=== PATIENT | female | born 1980 | race Two or more races ===

== ENCOUNTER → 2024-12-16 | Outpatient (CLI) | payer MEDICAID, SELFPAY ==
--- NOTE | 2024-12-16 13:15 | XR_ITS ---
Examination: Screening digital mammography, bilateral Computer aided detection 3-D breast Tomosynthesis, bilateral Date and time of exam: December 16, 2024 1317 hours Indication: Screening Technique: Nonmagnified MLO, CC views of the breasts to been obtained, reconstructed from 3-D Tomosynthesis images. R2 computer aided detection program utilized for evaluation of suspicious masses and/or abnormal calcifications. 3-D Tomosynthesis images obtained. Findings: The breasts are heterogeneously dense, which may obscure small masses 14 mm focal asymmetry outer right breast CC view, 8.3 cm from the nipple, likely posterior depth on the MLO view 13 cm from the nipple Benign calcifications Impression: BI-RADS Category 0: Incomplete: Need additional imaging evaluation Recommend follow-up spot tomographic views upper outer quadrant right breast posterior depth to assess 14 mm focal asymmetry on the current mammogram as well as bilateral breast sonography to complete the workup
== END | disposition home or self-care (01) ==
PROVIDERS: PCP Nurse Practitioner Family; Referring Provider Nurse Practitioner Family; Visit Provider Nurse Practitioner Family
DX: Z12.31 Encounter for screening mammogram for malignant neoplasm of breast (principal); N64.89 Other specified disorders of breast
CPT/HCPCS: 77063; 77067

== ENCOUNTER → 2025-01-02 | Outpatient (CLI) | payer MEDICAID, SELFPAY ==
--- NOTE | 2025-01-02 10:58 | XR_ITS ---
Examination: Diagnostic digital mammography, unilateral, right Computer aided detection 3-D breast Tomosynthesis, unilateral Date and time of exam: January 02, 2025 1138 hours INDICATIONS: Mammogram December 16, 2024 14 T millimeter focal asymmetry outer right breast CC view Technique: Nonmagnified MLO, CC views of the right breast have been obtained, reconstructed from 3-D Tomosynthesis images. R2 computer aided detection program utilized for evaluation of suspicious masses and/or abnormal calcifications. 3-D Tomosynthesis images obtained. Findings: The breast is heterogeneously dense, which may obscure small masses Focal asymmetry remains in the upper outer right breast probably benign Impression: BI-RADS category 3: Probably benign findings One additional 6 month right mammogram follow-up is needed
--- NOTE | 2025-01-02 11:18 | XR_ITS ---
Examination: Breast ultrasound complete, bilateral Date and time of exam: January 02, 2025 1122 hours INDICATIONS: 14 mm focal asymmetry upper outer quadrant right breast on mammogram December 16, 2024 Technique: Real-time grayscale ultrasonographic imaging bilateral breasts, including all 4 quadrants as well as nipple retroareolar and axillary regions. Findings: Sonographic images right breast Benign cysts, the largest in the 7:00 position 5 x 5 mm No solid nodules Sonographic images left breast No cystic or solid mass IMPRESSION: BI-RADS Category 2: Benign findings
== END | disposition home or self-care (01) ==
PROVIDERS: PCP Nurse Practitioner Family; Referring Provider Nurse Practitioner Family; Visit Provider Nurse Practitioner Family
DX: R92.331 Mammographic heterogeneous density, right breast (principal); N64.89 Other specified disorders of breast
CPT/HCPCS: 76641; 77061; 77065; G0279

== ENCOUNTER 2025-02-18 14:46 | Outpatient (AMB) | payer MEDICAID, SELFPAY ==
[2025-02-18 15:03] VITALS: BP 123/77; PULSE 100; RESP 17; TEMP 37.1; O2SAT 97; BMI 39.6
--- NOTE | 2025-02-18 15:03 | GYNCLNT_ITS ---
Vital Signs 02/18/25 15:03 Height 1.52 m Height Method Measured Weight 92.136 kg Weight Measurement Method Standing Scale BMI 39.6 BP 123/77 Blood Pressure Source Automatic Cuff Blood Pressure Location Right Upper Arm Position Sitting Respiration 17 Pulse 100 Pulse Source Monitor Temp 98.7 F Temp Source Temporal Artery Scan Pulse Oximetry (%) 97 Oxygen Delivery Method Room Air Allergies/Home Meds Allergies & Medications Allergies No Known Allergies Allergy (Verified 02/18/25 15:04) Intake Visit Data Collection New Patient or Established: New Patient (never been to [facility]) Reason for Visit:: REF LEIOMYOMA Consent obtained for Telemed Visit: No Seen by Clinical Staff ONLY (RN/MA): No Space Studies Faculty Member Required: No Do You Feel Safe at Home: Yes Authorities Contacted: N/A PCP or OBGYN visit in last 3 months: No Hx Now: No Are you currently on any form of Control: No Last menstrual period: 02/12/25 Pain Present Currently: No Pain Scale Used: Rome-Eagle/Numerical Pain scale:: 0 Smoking Status Smoking Status: Never smoker 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 1. Little interest or pleasure in doing things: not at all 2. Feeling down, depressed, or hopeless: not at all Total score: 0 PHQ-9 3. Trouble falling or staying asleep, or sleeping too much: Not at all 4. Feeling tired or having little energy: Not at all 5. Poor appetite or overeating: Not at all 6. Feeling bad about yourself - or that you are a failure or have let yourself or your family down: Not at all 7. Trouble concentrating on things, such as reading the newspaper or watching television: Not at all 8. Moving or speaking so slowly that other people could have noticed? - Or the opposite - being so fidgety or restless that you have been moving around a lot more than usual: not at all 9. Thoughts that you would be better off or of hurting yourself in some way: Not at all Total score: 0 If you checked off any problems, how difficult have these problems made it for you to do your work, take care of things at home, or get along with other people?: not difficult at all Source: Developed by Drs. Jett Tai, Mame Dee, Ganga Espinosa and colleagues, with an educational david from [employer]. Social History Living Situation History Marital Status: Lives With: Spouse Housing: House Tobacco History Smoking Status: Never smoker Alcohol History Alcohol Intake: Never Domestic Abuse History Do You Feel Safe at Home: Yes History of Present Illness HPI Narrative Elayne Patel is a 45-year-old female presenting for consultation regarding uterine fibroids. Her chief complaint is heavy menstrual bleeding, which has significantly worsened over the past 3 months. She describes the bleeding as really bad this last month. Due to the excessive blood loss, she has developed anemia and is currently taking iron supplements. The patient does not report any pain associated with her condition. Ms. Patel has not been on any specific treatment for her fibroids other than the iron supplementation for anemia. She is also taking vitamin D and an u nspecified treatment for a fungal infection, which is unrelated to her current gynecological issues. The patient's medical history is significant for two previous C-sections and having had her tubes tied for contraception. The heavy bleeding has impacted Ms. 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 She expresses interest in resolving the bleeding issue promptly, inquiring about how soon a potential surgery could be performed. Obstetric History: - GPAL: A0 L2 - Two previous pregnancies, both resulting in deliveries Medical History: - Anemia - Bilateral heterogeneous dense breasts Surgical History: - Two sections Medications and Supplements: - Iron (for anemia) - Vitamin D - Antifungal medication (for fungal infection) ROS: Genitourinary: Positive for heavy menstrual bleeding. Otherwise negative except as stated above. Diagnostic Test Results and Labs: Ultrasound (12/07/2024): - Uterus: Enlarged, measuring 17.5 cm x 9.5 cm x 13.8 cm - Leiomyomas: 3 identified - Anterior: 4.2 cm - Posterior: 5 cm - Fundal: 4.3 cm - Endocervical strip: 1.3 cm dilated - Endometrial stripe: 2 mm - Ovaries: - Right: 3.3 cm x 2.5 cm x 3 cm - Left: 2.5 cm x 2.5 cm x 2.5 cm - No other adnexal lesions Pap smear ([id number]): - Result: Negative - High-risk HPV screening: Negative Mammogram: - Result: Bilateral heterogeneously dense breasts Exam General General Appearance: alert, in no apparent distress and healthy appearing Head Head exam: atraumatic Neck Neck exam: Present normal inspection and trachea midline Chest Chest inspection: Present normal inspection and symmetric chest wall rise External exam: Present normal external exam; Absent tenderness Neuro Neurological exam: Present oriented X3 Psych Psychiatric exam: Present normal affect and normal mood Office Procedures OB Clinic LOC & Office Proc's Nursing/Assessment Patient Status: Initial/New Patient OB Clinic Nursing Assessment: Medication Reconciliation, Update PMH in EMR and Vital Signs OB Clinic Coordination of Care: Complex Care and Chronic Disease 1-5, Consent,records obtained, informed consent, 4+ Authorizations needed, Lab and Imaging orders and Results/Orders obtained New Patient Charge New Patient Point Assignment: 1104 New Patient 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 Enlarged uterus measuring 17.5 x 9.5 x 13.8 cm ? Three leiomyomas: anterior (4.2 cm), posterior (5 cm), and fundal (4.3 cm) ? Endometrial stripe measures 2 mm - Heavy bleeding, particularly severe in last month - Anemia requiring iron supplementation - Medical management unlikely to be effective due to fibroid size and symptom severity - At counseling, the patient was informed of the risks of surgery, and all alternatives were discussed Plan: - Recommend total hysterectomy with bilateral salpingectomy - Ovarian preservation planned - Anticipate using previous section incision for approach - Schedule surgery within approximately one month, pending insurance approval - Pre-operative evaluation: ? Complete blood count (to assess anemia) ? Basic metabolic panel ? EKG ? Anesthesia consultation one day prior to surgery - Discuss post-operative expectations: ? 1-2 night hospital stay ? 5-7 days of bed rest followed by gradual increase in activity ? Full activity clearance at 1 month post-op ? Potential for up to 3 months of disability - Schedule follow-up appointment prior to surgery for further questions and informed consent - Provide disability paperwork for up to 3 months once surgery date is confirmed
== END 2025-02-18 15:21 | disposition home or self-care (01) ==
LOC: HODSOBC 14:46
PROVIDERS: PCP Nurse Practitioner Family; Referring Provider Nurse Practitioner Family; Supervising Provider Obstetrics & Gynecology; Visit Provider Obstetrics & Gynecology
DX: D25.1 Intramural leiomyoma of uterus (principal); N92.0 Excessive and frequent menstruation with regular cycle; D64.9 Anemia, unspecified
CPT/HCPCS: 99203; G0463

== ENCOUNTER 2025-03-17 14:50 | Outpatient (AMB) | payer MEDICAID, SELFPAY ==
--- NOTE | 2025-03-17 15:12 | GYNCLNT_ITS ---
Vital Signs 03/17/25 15:13 Height 1.52 m Height Method Stated Weight 92.646 kg Weight Measurement Method Standing Scale BMI 40.1 BP 140/82 H Blood Pressure Source Automatic Cuff Blood Pressure Location Left Upper Arm Position Sitting Respiration 16 Pulse 70 Pulse Source Monitor Temp 98.4 F Temp Source Oral Pulse Oximetry (%) 98 Oxygen Delivery Method Room Air Allergies/Home Meds Allergies & Medications Allergies No Known Allergies Allergy (Verified 04/08/25 11:39) Intake Visit Data Collection New Patient or Established: Established Patient (seen at [facility] within 3 years) Reason for Visit:: PRE OP Seen by Clinical Staff ONLY (RN/MA): No Solderer Assembly Repair Required: No Do You Feel Safe at Home: Yes Authorities Contacted: N/A PCP or OBGYN visit in last 3 months: Yes Hx Now: No Are you currently on any form of Control: No Pain Present Currently: No Pain Scale Used: Rome-Eagle/Numerical Pain scale:: 0 Smoking Status Smoking Status: Never smoker Solutions Specialist history Solutions Specialist History Menstrual regularity: irregular Flow: heavy Monthly: Yes How many days does period last: 8 Age at menarche: 12 Currently sexually active: Yes 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 1. Little interest or pleasure in doing things: not at all 2. Feeling down, depressed, or hopeless: not at all Total score: 0 PHQ-9 3. Trouble falling or staying asleep, or sleeping too much: Not at all 4. Feeling tired or having little energy: Not at all 5. Poor appetite or overeating: Not at all 6. Feeling bad about yourself - or that you are a failure or have let yourself or your family down: Not at all 7. Trouble concentrating on things, such as reading the newspaper or watching television: Not at all 8. Moving or speaking so slowly that other people could have noticed? - Or the opposite - being so fidgety or restless that you have been moving around a lot more than usual: not at all 9. Thoughts that you would be better off or of hurting yourself in some way: Not at all Total score: 0 Source: Developed by Drs. Jett Tai, Mame Dee, Ganga Espinosa and colleagues, with an educational dvaid from [employer]. Depression screen completed yes Social History Living Situation History Lives With: Spouse Housing: House Tobacco History Smoking Status: Never smoker Alcohol History Alcohol Intake: Never Domestic Abuse History Do You Feel Safe at Home: Yes History of Present Illness HPI Narrative Patient presents for pre-operative consultation regarding a scheduled hysterectomy on March 26. She expresses nervousness about the procedure. The surgery is expected to last approximately 45 minutes, with additional time for anesthesia induction and recovery. The surgical plan includes a smaller incision than her previous scars, with the intention to preserve the ovaries unless abnormalities are detected intraoperatively. Elayne has concerns about the recovery process and post-operative care. She inquires about the duration of her hospital stay, which is expected to be two nights, with the possibility of discharge after one night if her recovery progresses exceptionally well. The patient also asks about disability paperwork related to her upcoming surgery and recovery period. 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 Her obstetric history includes GTPAL: G2 T2 L2, with two previous deliveries. Her surgical history includes two sections, kidney donation to her brother, and ovarian surgery. Family history notable for brother who received kidney donation from patient. Social history indicates patient is employed, as disability forms are discussed, and has children, as scars are mentioned. Exam General General Appearance: alert, in no apparent distress and healthy appearing Head Head exam: atraumatic Neck Neck exam: Present normal inspection and trachea midline Chest Chest inspection: Present normal inspection and symmetric chest wall rise External exam: Present normal external exam; Absent tenderness Neuro Neurological exam: Present oriented X3 Psych Psychiatric exam: Present normal affect and normal mood Office Procedures OB Clinic LOC & Office Proc's Nursing/Assessment Patient Status: Established Patient OB Clinic Nursing Assessment: Medication Reconciliation, Update PMH in EMR and Vital Signs OB Clinic Coordination of Care: Complex Care and Chronic Disease 1-5, Consent,records obtained, informed consent, Education Simp Pt/Fam, Lab and Imaging orders, Results/Orders obtained and Staff clarify orders Established Patient Charge Established Patient Point Assignment: 105 Established Patient Point Charge: EP Level 3 (80-115) Assessment & Plan Diagnosis / Problem List (1) Encounter for surgical aftercare following surgery on the genitourinary system: Status: Acute (2) Other acute postprocedural pain: Status: Acute Plan Scheduled Hysterectomy: - Perform hysterectomy on March 26 ? General anesthesia ? Estimated procedure time: 45 minutes ? Planned incision: smaller than scar ? Intent to preserve ovaries, remove if abnormalities noted intraoperatively - Anticipated hospital stay: 2 nights (possibly 1 if recovery exceeds expectations) - Remove urinary catheter after first night - Patient education provided: ? Postoperative expectations (eating, walking, showering permitted) ? Two Dot dressings to be removed at 2-week follow-up appointment - Follow-up appointment scheduled in 2 weeks: ? Remove dressings ? Assess recovery ? Provide clearance for driving and light work - Full activity clearance planned for 1 month post-surgery - Preoperative instructions: ? Await call from hospital for registration ? Complete preoperative testing 1-2 days before surgery (blood work, EKG, anesthesia consultation) ? Use provided antiseptic scrub on morning of surgery - Day of surgery: ? Check-in time: 6:00 AM ? Estimated surgery start time: 7:30 AM - Disability paperwork: ? Patient to submit online application and provide confirmation number ? Alternative: Patient may drop off paper forms at office for completion Surgical Counseling Benefits of Hysterectomy: Effective treatment for unspecified condition requiring removal of the uterus. Risks of Hysterectomy: General risks associated with anesthesia. Surgical risks including potential complications. Alternatives to Hysterectomy: Not specified in the given text.
[2025-03-17 15:13] VITALS: BP 140/82; PULSE 70; RESP 16; TEMP 36.9; O2SAT 98; BMI 40.1
== END 2025-03-17 15:27 | disposition home or self-care (01) ==
LOC: HODSOBC 14:50
PROVIDERS: Supervising Provider Obstetrics & Gynecology; Visit Provider Obstetrics & Gynecology
DX: G89.18 Other acute postprocedural pain (principal); Z90.710 Acquired absence of both cervix and uterus
CPT/HCPCS: 99213; G0463

== ENCOUNTER 2025-03-26 05:49 | Inpatient (IN) | payer MEDICAID, SELFPAY ==
[2025-03-24 09:41] VITALS: BMI 39.2
[2025-03-24 10:21] LABS: Basophils # (Auto) 0.0 Thou/mm3 (0.0-0.2); Basophils % (Auto) 1 % (0-2.5); Eosinophils # (Auto) 0.3 Thou/mm3 (0.0-0.5); Eosinophils % (Auto) 4 % (0-10); Hematocrit 37.0 % (36.0-46.0); Hemoglobin 11.5 g/dL (12.0-16.0); Immature Granulocytes Auto 0.03 Thou/mm3 (0.00-0.00); Lymphocytes # (Auto) 1.3 Thou/mm3 (1.0-4.8); Lymphocytes % (Auto) 19 % (10-50); Mean Corpuscular HGB Conc 31.1 g/dl (31.0-37.0); Mean Corpuscular Hemoglobin 25.5 pg (25.0-35.0); Mean Corpuscular Volume 82 fL (80-100); Monocytes # (Auto) 0.6 Thou/mm3 (0.0-0.8); Monocytes % (Auto) 9 % (0-12); Neutrophils # (Auto) 4.6 Thou/mm3 (1.8-7.7); Neutrophils % (Auto) 67 % (37-80); Nucleated Red Blood Cell # 0.00 Thou/mm3 (0.00-0.00); Nucleated Red Blood Cell % 0 /100 WBC (0); Platelet Count 369 Thou/mm3 (140-440); RDW Standard Deviation 54.2 fL (36.4-46.3); Red Blood Count 4.51 Miln/mm3 (4.00-5.20); White Blood Count 6.9 Thou/mm3 (3.6-11.0)
[2025-03-24 10:32] LABS: HCG,Qualitative Serum Negative
[2025-03-24 10:36] LABS: Alanine Aminotransferase 12 U/L (10-49); Albumin, Serum 4.8 gm/dL (3.5-5.0); Albumin/Globulin Ratio 1.6 (1.2-2.2); Alkaline Phosphatase 57 U/L (46-116); Anion Gap 8 (7-16); Aspartate Amino Transferase 13 U/L (0-34); BUN/Creatinine Ratio 15 Ratio (12-20); Bilirubin,Total 0.3 mg/dL (0.3-1.2); Blood Urea Nitrogen 12 mg/dL (9-23); Calcium 10.2 mg/dL (8.3-10.6); Calcium (Corrected) 10.2 mg/dL (8.5-10.1); Carbon Dioxide 23.8 mMol/L (20.0-31.0); Chloride 108 mMol/L (98-107); Creatinine (Component) 0.8 mg/dL (0.6-1.3); Estimated Creatinine Clearance 88.5 mL/min (>60); Globulin 3.0 gm/dL (2.3-3.5); Glucose 105 mg/dL (74-106); Osmolality,Calculated 279 (275-295); Potassium 4.0 mMol/L (3.4-5.1); Sodium 140 mMol/L (136-145); Total Protein 7.8 gm/dL (5.7-8.2); eGFR > 60 See Note
[2025-03-26] VITALS (13 sets, daily range): BP systolic 103–149; BP diastolic 59–89; PULSE 64–74; RESP 14–20; TEMP 36.2–37.1; O2SAT 94–100; BMI 39.2; BMI 39.0
--- NOTE | 2025-03-26 09:09 | ESOP_ITS ---
Operative Note - [employer] Procedure Date of procedure: 03/26/25 Procedure Performed: Supracervical abdominal hysterectomy Lysis of extensive scar tissue Indication: 45-year-old with 17 cm uterus, abnormal uterine bleeding Multiple leiomyomas measuring over 5 cm each Symptomatic anemia requiring blood transfusion History of section x 2 Post-Op diagnosis: Same as preop with significant scar tissue Anesthesia type: General Procedure description: Informed consent was obtained and the patient was taken to the operating room. Identity was confirmed by double identifiers and she was placed on the operating table. General anesthesia was administered and the patient was secured in the supine position. The abdomen and perineum were prepped in the usual sterile fashion, a Millan catheter was inserted for continuous drainage, and sterile drapes were applied. A surgical timeout was completed. A Pfannenstiel skin incision was made with a scalpel and carried down through the subcutaneous tissue. Significant scar tissue was encountered in the subcutaneous and fascial layers, making the fascia difficult to identify. Dissection was performed cautiously using a combination of sharp dissection and electrocautery to avoid injury to underlying structures. Upon reaching the fascia, it was incised on either side of the midline and extended bilaterally using Cobb scissors. The rectus fascia was grasped with Rona's clamps and dissected off the anterior surface of the rectus muscles both superiorly and inferiorly. The omentum was found adherent to the anterior abdominal wall, limiting access to the uterus. A Maillard incision was made in the left rectus muscle to facilitate safe peritoneal entry from behind. The peritoneal cavity was then entered and adhesions were addressed. Due to the enlarged size of the uterus, the Darion retractor could not be used. The bowel was packed out of the field as best as possible. Dense scar bands were present behind the uterus, over the uterine fundus, and anteriorly in the lower uterine segment tethering the bladder to the anterior uterus. These were carefully lysed using electrocautery and sharp dissection, taking great care to protect the surrounding structures. Once adequate visualization was achieved, the uterus was grasped with a double- tooth tenaculum and placed under traction. Dissection began at the right round ligament, which was divided. The anterior and posterior leaves of the right broad ligament were opened. Dissection continued across the anterior bladder reflection, and the left broad ligament was identified and divided. The utero- ovarian ligaments were then divided bilaterally. Dissection was carried down the sides of the uterus to the level of the endocervix. The uterus was amputated at this level, completing a supracervical hysterectomy. Hemostasis was confirmed at all dissection and adhesion takedown sites. Closure was performed en cheikh: The peritoneum, rectus muscles, and fascia were reapproximated using one-loop 0 PDS suture. The subcutaneous tissue was irrigated and closed using 0 Vicryl sutures. The skin was closed using jacki. A sterile pressure dressing was applied. The patient was undraped, general anesthesia was reversed, and she was transferred to the recovery room in stable and awake condition. The patient tolerated the procedure well. No acute complications were encountered. All instrument, sponge, and lap counts were correct ?2. Estimated blood loss (ml): 150 Findings: Extensive scar tissue in the subcutaneous and fascial layers Omentum adherent to anterior abdominal wall Dense pelvic adhesions including anterior lower uterine segment and posterior uterine fundus Significantly enlarged uterus Challenging exposure due to adhesions and body habitus Procedure duration prolonged by ~45 minutes due to adhesiolysis Surgical staff Operation Date: 03/26/25 07:30 Case Staff Anesthesiologist: Manuelito Youssef RN First Assistant: Isaura Elizabeth Diagnosis Discharge Diagnosis (1) Symptomatic anemia: Status: Acute (2) Abnormal uterine and vaginal bleeding, unspecified: Status: Acute (3) Intramural leiomyoma of uterus: Status: Acute Problem List Completed Was Problem List Reviewed/Reconciled?: Yes
--- NOTE | 2025-03-26 09:12 | SUR.PHASEI ---
0912 Patient arrived to recovery resting comfortably in bed, on oxygen 8L via oxy mask with an oral airway in place, breathing unlabored, vital signs stable, dressing intact to abdomen; jacki, telfa, gauze, medipore tape, no bleeding noted, to vaginal area; peripad, no bleeding noted, report received from Dr. Youssef and Cheko FOX
[2025-03-26] MEDS: SODIUM CHLORIDE 0.9% 1000 ML 1,000 ML 200 ML IV ×3 (09:31→20:00)
[2025-03-26] MEDS: HYDROmorphone 1 MG/ML PCA SYRINGE 30ML 30 MG IV (09:35)
--- NOTE | 2025-03-26 10:03 | SUR.PHASEI ---
0904 Report given to Conor RN, patient meets discharge criteria from recovery, resting comfortably in bed, on oxygen 2L via nasal cannula, breathing unlabored, vital signs stable, per patient her pain is tolerable, controlled with PRIMER INSPECTOR, dressing intact; no bleeding noted, urinary catheter in place with leg secure, eating ice chips; tolerating well, denies nausea 1003 Patient transported via bed to room to room 350 without incident, patients accompanied, patient resting comfortably with call light in reach when this director underwriter sales left patient room
[2025-03-26] MEDS: ONDANSETRON INJ 2 MG/ML INJ 2 ML 4 MG IVP (10:45)
[2025-03-26] MEDS: Milk Of Magnesia Susp 30 ML UDC PO (10:45)
[2025-03-26] MEDS: ACETAMINOPHEN IVPB 1,000 MG/100 ML VIAL 250 MG IV ×2 (14:08→20:54)
[2025-03-26] MEDS: PROMETHAZINE INJ 25 MG in SODIUM CHLORIDE 0.9% 50 ML IV (16:04)
[2025-03-27] VITALS (8 sets, daily range): BP systolic 93–127; BP diastolic 53–84; PULSE 61–90; RESP 14–20; TEMP 36.3–37.3; O2SAT 96–99
[2025-03-27] MEDS: SODIUM CHLORIDE 0.9% 1000 ML 1,000 ML 200 ML IV ×5 (01:45→22:00)
[2025-03-27] MEDS: ACETAMINOPHEN IVPB 1,000 MG/100 ML VIAL 250 MG IV (03:44)
[2025-03-27 06:02] LABS: Basophils # (Auto) 0.0 Thou/mm3 (0.0-0.2); Basophils % (Auto) 0 % (0-2.5); Eosinophils # (Auto) 0.0 Thou/mm3 (0.0-0.5); Eosinophils % (Auto) 0 % (0-10); Hematocrit 26.9 % (36.0-46.0); Immature Granulocytes Auto 0.04 Thou/mm3 (0.00-0.00); Lymphocytes # (Auto) 1.3 Thou/mm3 (1.0-4.8); Lymphocytes % (Auto) 10 % (10-50); Mean Corpuscular HGB Conc 30.1 g/dl (31.0-37.0); Mean Corpuscular Hemoglobin 25.2 pg (25.0-35.0); Mean Corpuscular Volume 84 fL (80-100); Monocytes # (Auto) 1.5 Thou/mm3 (0.0-0.8); Monocytes % (Auto) 11 % (0-12); Neutrophils # (Auto) 10.5 Thou/mm3 (1.8-7.7); Neutrophils % (Auto) 79 % (37-80); Nucleated Red Blood Cell # 0.00 Thou/mm3 (0.00-0.00); Nucleated Red Blood Cell % 0 /100 WBC (0); Platelet Count 252 Thou/mm3 (140-440); RDW Standard Deviation 54.6 fL (36.4-46.3); Red Blood Count 3.21 Miln/mm3 (4.00-5.20); White Blood Count 13.4 Thou/mm3 (3.6-11.0)
[2025-03-27 06:06] LABS: Hemoglobin 8.1 g/dL (12.0-16.0)
[2025-03-27 06:31] LABS: Anion Gap 9 (7-16); BUN/Creatinine Ratio 13 Ratio (12-20); Blood Urea Nitrogen 9 mg/dL (9-23); Calcium 8.0 mg/dL (8.3-10.6); Carbon Dioxide 24.0 mMol/L (20.0-31.0); Chloride 107 mMol/L (98-107); Creatinine (Component) 0.7 mg/dL (0.6-1.3); Estimated Creatinine Clearance 100.8 mL/min (>60); Glucose 127 mg/dL (74-106); Osmolality,Calculated 280 (275-295); Potassium 3.8 mMol/L (3.4-5.1); Sodium 140 mMol/L (136-145); eGFR > 60 See Note
[2025-03-27] MEDS: DOCUSATE SOD 100 MG CAPSULE PO (09:29)
--- NOTE | 2025-03-27 09:33 | PC.SS ---
Patient admitted for hysterectomy surgery. Surgery was completed yesterday with Dr. James. Patient is independent with ADL's. Patient is employed. No DME. PCP: Jessie Street NP. D/c plan is to return home. Alt medical decision maker: Spouse, Yanet Jeffers,
--- NOTE | 2025-03-27 10:30 | CHAP ---
Visit was made by the Spiritual Care Volunteer who prayed with them. Volunteer was in the hospital from 09:15-10:30.
--- NOTE | 2025-03-27 12:43 | ESPR_ITS ---
Documentation for date of: 03/27/25 POST ACUTE CARE NURSE Subjective Subjective Interval history: patient doing well this morning. Pain is adequately controlled on the current regimen. No incisional complaints, no chest pain, shortness of breath, breathing difficulties. Ambulating, tolerating p.o., Adequate UOP Exam Vital Signs Temp Pulse Resp BP Pulse Ox O2 Del Method O2 Flow Rate 97.8 F 79 17 93/58 L 98 Nasal Cannula 2 03/27/25 08:00 03/27/25 08:00 03/27/25 08:00 03/27/25 08:00 03/27/25 08:00 03/27/25 08:00 03/27/25 08:00 Constitutional Constitutional: no acute distress Routine HEENT Exam Head: Present normocephalic and atraumatic Eye: Present EOMI and PERRL ENT: Present mucous membranes moist Routine Neck Exam Neck: Present supple and trachea midline Routine Respiratory Exam Respiratory: Present chest non-tender, lungs clear, normal breath sounds and no resp distress Routine Cardiovascular Exam Cardiovascular: Present RRR Routine Abdominal Exam Abdominal: Present soft and normoactive bowel sounds Routine Extremities Exam Extremities: Present full ROM Routine Skin Exam Skin: Present intact and dry Routine Neurological Exam Neurological: Present alert, oriented X3 and CN II-XII intact Routine Psychiatric Exam Psychiatric: Present normal affect and normal thought process Urinary Catheter Management Cath placed during this visit: no POST ACUTE CARE NURSE - PN: Obj Data Labs 03/27/25 04:55 03/27/25 04:55 Labs: Laboratory Results - last 24 hr 03/27/25 04:55 WBC 13.4 H RBC 3.21 L Hgb 8.1 L D Hct 26.9 L D MCV 84 MCH 25.2 MCHC 30.1 L RDW Std Deviation 54.6 H Plt Count 252 D Neut % (Auto) 79 Lymph % (Auto) 10 [place] % (Auto) 11 Eos % (Auto) 0 Baso % (Auto) 0 Neut # (Auto) 10.5 H Lymph # (Auto) 1.3 [place] # (Auto) 1.5 H Eos # (Auto) 0.0 Baso # (Auto) 0.0 Immature Gran # (Auto) 0.04 H Absolute Nucleated RBC 0.00 Immature Gran % 0 Nucleated RBC % 0 Sodium 140 Potassium 3.8 Chloride 107 Carbon Dioxide 24.0 Anion Gap 9 BUN 9 Creatinine 0.7 Estim Creat Clear Calc 100.8 eGFR > 60 BUN/Creatinine Ratio 13 Glucose 127 H Calculated Osmolality 280 Calcium 8.0 L D POST ACUTE CARE NURSE - A/P Assessment and plan (1) Symptomatic anemia: Status: Acute (2) Abnormal uterine and vaginal bleeding, unspecified: Status: Acute (3) Intramural leiomyoma of uterus: Status: Acute Assessment and plan: 1. Continue routine /post-op care 2. Labs reviewed, cbc appropriate 3. Remove dressing/[place] 4. Encourage to ambulate, shower 5. Encourage PO intake, breast feeding Postoperative Procedures: Procedures Operation Date: 03/26/25 07:30 Actual Procedure Side Surgeon p Total Abdominal Hysterectomy Ramirez James MD Time Spent With Patient Time: Total time spent is greater than 50% in coordination of care (as documented) at patient's floor/unit and/or counseling patient: Time with patient: less than 15 minutes
[2025-03-27] MEDS: LACTULOSE SYRUP 20 GM/30 ML UDC 10 GM PO ×2 (13:25→21:38)
[2025-03-28] VITALS (7 sets, daily range): BP systolic 118–140; BP diastolic 64–85; PULSE 74–83; RESP 17–99; TEMP 36.4–37.2; O2SAT 93–99
[2025-03-28] MEDS: KETOROLAC INJ 30 MG/ML VIAL IVP ×2 (00:48→05:31)
[2025-03-28] MEDS: LACTULOSE SYRUP 20 GM/30 ML UDC 10 GM PO (05:31)
[2025-03-28] MEDS: SODIUM CHLORIDE 0.9% 1000 ML 1,000 ML 200 ML IV (05:49)
[2025-03-28] MEDS: DOCUSATE SOD 100 MG CAPSULE PO (08:41)
--- NOTE | 2025-03-28 08:54 | PD.GYNPROG ---
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 Pain is adequately controlled on the current regimen. No incisional complaints, no chest pain, shortness of breath, breathing difficulties. Ambulating, tolerating p.o., passing flatus and voiding without difficulty. Patient is in the hospital Exam Vital Signs Temp Pulse Resp BP Pulse Ox O2 Del Method O2 Flow Rate 97.5 F 74 17 123/75 97 Room Air 2 03/28/25 08:00 03/28/25 08:00 03/28/25 08:00 03/28/25 08:00 03/28/25 08:00 03/28/25 08:00 03/28/25 00:00 Constitutional Constitutional: no acute distress Routine HEENT Exam Head: Present normocephalic and atraumatic Eye: Present EOMI and PERRL ENT: Present mucous membranes moist Routine Neck Exam Neck: Present supple and trachea midline Routine Respiratory Exam Respiratory: Present chest non-tender, lungs clear, normal breath sounds and no resp distress Routine Cardiovascular Exam Cardiovascular: Present RRR Routine Abdominal Exam Abdominal: Present soft and normoactive bowel sounds Routine Extremities Exam Extremities: Present full ROM Routine Skin Exam Skin: Present intact and dry Routine Neurological Exam Neurological: Present alert, oriented X3 and CN II-XII intact Routine Psychiatric Exam Psychiatric: Present normal affect and normal thought process Urinary Catheter Management Cath placed during this visit: no 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 Continue routine post operative care 2. Transition to PO meds. 3. Encourage to ambulate 4. Anticipate discharge home today. 5. Home care instructions reviewed Postoperative Procedures: Procedures Operation Date: 03/26/25 07:30 Actual Procedure Side Surgeon p Total Abdominal Hysterectomy Ramirez James MD Time Spent With Patient Time: Total time spent is greater than 50% in coordination of care (as documented) at patient's floor/unit and/or counseling patient: Time with patient: less than 15 minutes
--- NOTE | 2025-03-28 09:55 | PC.SS ---
[id number] contacted the pts spouse Yanet Jeffers [phone] and he reported he will be picking up the pt when she is ready for d/c.
--- NOTE | 2025-03-28 11:03 | PC.NURSE ---
Spoke to dr James over the phone to clarify discharge per MD pt may discharge today and follow up with him.
--- NOTE | 2025-03-28 12:09 | PC.NURSE ---
Pt ready for dc. papers signed, iv out. 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
== END 2025-03-28 12:30 | disposition home or self-care (01) | DRG 519 ==
LOC: S2W1 07:09 → S3NX 10:11
PROVIDERS: Admitting Provider Obstetrics & Gynecology; PCP Nurse Practitioner Family; Visit Provider Obstetrics & Gynecology
PROC: 0UT90ZZ Resection of Uterus, Open Approach (ICD-10-PCS; principal; 2025-03-26 07:30)
DX: D25.1 Intramural leiomyoma of uterus (principal); D64.9 Anemia, unspecified; N73.6 Female pelvic peritoneal adhesions (postinfective); Z98.891 History of uterine scar from previous surgery
CPT/HCPCS: 36415; 80048; 80053; 84703; 85025; 86850; 86900; 86901; A4217; A4649; J0131; J0690; J1100; J1885; J2250; J2405; J2550; J2704; J3010; J3490; J7030; A9270

== ENCOUNTER 2025-04-08 11:26 | Outpatient (AMB) | payer MEDICAID, SELFPAY ==
[2025-04-08 11:38] VITALS: BP 113/80; PULSE 78; RESP 17; TEMP 36.5; O2SAT 98; BMI 38.7
--- NOTE | 2025-04-08 11:38 | AMB.GYNCLNOT ---
Vital Signs 04/08/25 11:38 Height 1.52 m Height Method Stated Weight 90.038 kg Weight Measurement Method Standing Scale BMI 38.7 BP 113/80 Blood Pressure Source Automatic Cuff Blood Pressure Location Right Upper Arm Position Sitting Respiration 17 Pulse 78 Pulse Source Monitor Temp 97.7 F Temp Source Temporal Artery Scan Pulse Oximetry (%) 98 Oxygen Delivery Method Room Air Allergies/Home Meds Allergies & Medications Allergies No Known Allergies Allergy (Verified 04/08/25 11:39) Medication Reconciliation clindamycin HCl 300 mg capsule 300 mg PO TID 7 days #21 caps 04/08/25 [Rx] clindamycin phosphate 1 % lotion 1 applic topical QDAY 7 days #60 mL 04/08/25 [Rx] Intake Visit Data Collection New Patient or Established: Established Patient (seen at 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 1. Little interest or pleasure in doing things: not at all 2. Feeling down, depressed, or hopeless: not at all Total score: 0 PHQ-9 3. Trouble falling or staying asleep, or sleeping too much: Not at all 4. Feeling tired or having little energy: Not at all 5. Poor appetite or overeating: Not at all 6. Feeling bad about yourself - or that you are a failure or have let yourself or your family down: Not at all 7. Trouble concentrating on things, such as reading the newspaper or watching television: Not at all 8. Moving or speaking so slowly that other people could have noticed? - Or the opposite - being so fidgety or restless that you have been moving around a lot more than usual: not at all 9. Thoughts that you would be better off or of hurting yourself in some way: Not at all Total score: 0 If you checked off any problems, how difficult have these problems made it for you to do your work, take care of things at home, or get along with other people?: not difficult at all Source: Developed by Drs. Jett Tai, Mame Dee, Ganga Espinosa and colleagues, with an educational david from [employer]. Depression screen completed yes Social History Living Situation History Marital Status: Lives With: Spouse Housing: House Tobacco History Smoking Status: Never smoker Second Hand Smoke Exposure: No Alcohol History Alcohol Intake: Never Domestic Abuse History Do You Feel Safe at Home: Yes History of Present Illness HPI Narrative Elayne Patel presents for a 10-day postoperative visit following a total abdominal hysterectomy performed on March 26, 2025. The patient reports that her pain is okay and has been improving daily since the surgery. She notes that the first three days post-surgery were particularly challenging, but her condition has been steadily improving since then. The patient denies any constipation or bladder problems. She has gradually increased her activity levels, including walking around and sitting for a couple of hours to watch TV. She reports no significant issues with her incision site, although there is a slight odor noted in the incision fold. The patient inquired about her disability forms, indicating she has been unable to work since the surgery and is seeking documentation for her leave. She also asked about the weight of her removed uterus, demonstrating interest in understanding the extent of her condition. The patient has been taking antibiotic tablets for 7 days and applying antibiotic cream once daily. She is currently on disability leave from work. ROS: Negative except as stated above, limited to BUNDLE WRAPPER and pertinent complaints. Exam Narrative Physical exam: - Abdominal: Incision site from total abdominal hysterectomy visualized. [place] present at incision site. Incision appears to be healing well. Slight odor noted in the incision fold. General General Appearance: alert, in no apparent distress and healthy appearing Head Head exam: atraumatic Neck Neck exam: Present normal inspection and trachea midline Chest Chest inspection: Present normal inspection and symmetric chest wall rise External exam: Present normal external exam; Absent tenderness Neuro Neurological exam: Present oriented X3 Psych Psychiatric exam: Present normal affect and normal mood Office Procedures OB Clinic LOC & Office Proc's Nursing/Assessment Patient Status: Established Patient OB Clinic Nursing Assessment: Medication Reconciliation, Update PMH in EMR and Vital Signs OB Clinic Coordination of Care: Complex Care and Chronic Disease 1-5, Consent,records obtained, informed consent, Education Simp Pt/Fam, Results/Orders obtained and Staff clarify orders Established Patient Charge Established Patient Point Assignment: 90 Established Patient Point Charge: EP Level 3 (80-115) Assessment & Plan Diagnosis / Problem List (1) Other acute postprocedural pain: Status: Acute (2) Encounter for surgical aftercare following surgery on the genitourinary system: Status: Acute Plan Status post total abdominal hysterectomy: - 10 days post-operative from total abdominal hysterectomy performed on 03/26/2025 for uterine fibroids. - Adequate pain control with no constipation or bladder problems. - Well-healing incision with jacki in place, slight odor noted in incisional fold. - Pathology confirms fibroids with no evidence of cancer or pre-cancerous lesions. - Removed uterus weighed 785 grams, approximately 4 times normal weight due to fibroid enlargement. Plan: - Remove jacki from abdominal incision. - Prescribe short course of oral antibiotics for 7 days. - Prescribe topical antibiotic cream to be applied once daily to incision site. - Instruct patient on gentle cleaning of incision site during showers. - Gradually increase activities with restrictions: ? No lifting more than 25 pounds ? No sexual intercourse ? No pelvic exercises - Cleared for walking, driving, and travel. - Complete disability paperwork as requested by patient. - Follow-up as needed.
== END 2025-04-08 11:52 | disposition home or self-care (01) ==
LOC: HODSOBC 11:26
PROVIDERS: Supervising Provider Obstetrics & Gynecology; Visit Provider Obstetrics & Gynecology
DX: N99.89 Other postprocedural complications and disorders of genitourinary system (principal); G89.18 Other acute postprocedural pain; Z90.710 Acquired absence of both cervix and uterus; Y83.6 Removal of other organ (partial) (total) as the cause of abnormal reaction of the patient, or of later complication, without mention of misadventure at the time of the procedure
CPT/HCPCS: 99213; G0463

== ENCOUNTER 2025-05-01 13:47 | Outpatient (AMB) | payer MEDICAID, SELFPAY ==
[2025-05-01 14:13] VITALS: BP 130/83; PULSE 83; RESP 16; TEMP 36.2; O2SAT 98; BMI 38.8
--- NOTE | 2025-05-01 14:13 | AMB.OBVISIT ---
Vital Signs 05/01/25 14:13 Height 1.52 m Height Method Stated Weight 89.811 kg Weight Measurement Method Standing Scale BMI 38.8 BP 130/83 Blood Pressure Source Automatic Cuff Blood Pressure Location Left Upper Arm Position Sitting Respiration 16 Pulse 83 Pulse Source Monitor Temp 97.2 F Temp Source Oral Pulse Oximetry (%) 98 Oxygen Delivery Method Room Air Allergies/Home Meds Allergies & Medications Allergies No Known Allergies Allergy (Verified 05/01/25 14:14) Medication Reconciliation No Known Home Medications 05/01/25 [History Confirmed 05/01/25] Intake Visit Data Collection New Patient or Established: Established Patient (seen at [facility] within 3 years) Reason for Visit:: OBC Seen by Clinical Staff ONLY (RN/MA): No 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 1. Little interest or pleasure in doing things: not at all 2. Feeling down, depressed, or hopeless: not at all Total score: 0 PHQ-9 3. Trouble falling or staying asleep, or sleeping too much: Not at all 4. Feeling tired or having little energy: Not at all 5. Poor appetite or overeating: Not at all 6. Feeling bad about yourself - or that you are a failure or have let yourself or your family down: Not at all 7. Trouble concentrating on things, such as reading the newspaper or watching television: Not at all 8. Moving or speaking so slowly that other people could have noticed? - Or the opposite - being so fidgety or restless that you have been moving around a lot more than usual: not at all 9. Thoughts that you would be better off or of hurting yourself in some way: Not at all Total score: 0 If you checked off any problems, how difficult have these problems made it for you to do your work, take care of things at home, or get along with other people?: not difficult at all Source: Developed by Drs. Jett Tai, Mame Dee, Ganga Espinosa and colleagues, with an educational david from [employer]. 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 She was previously seen for a complaint of slight odor from her incision and was prescribed antibiotics. The patient reports that her incision has healed well. She mentions experiencing a rash in the incision area, which she had checked by another doctor who attributed it to sweating and assured her it was fine. Elayne denies any current drainage or discharge from the incision site. She has completed the prescribed course of antibiotics for the previously reported odor. Elayne's overall health status appears to have improved since her last visit, with resolution of the incision-related concerns. She has not reported any new symptoms or complications related to her surgery. She is a 45-year-old female. The patient has been cleared to return to work, resume sexual intercourse, and resume exercise. ROS: Skin: Positive for resolved rash in incision area. Genitourinary: Negative for discharge from incision. Exam Narrative Physical exam: - Abdominal: Incision site is healed and dry. No discharge or odor noted Assessment & Plan Diagnosis / Problem List (1) Encounter for surgical aftercare following surgery on the genitourinary system: Status: Acute (2) Other acute postprocedural pain: Status: Acute Plan Status post total abdominal hysterectomy: - Patient is now more than one month post-operative from total abdominal hysterectomy performed on March 26, 2025. - Previous visit: reported slight odor from incision, treated with antibiotics. - Current status: incision healed well with no drainage or odor. - Experienced rash in incision area attributed to sweating. - Surgical site appears to have healed appropriately without complications. Plan: - Patient cleared for all activities without restrictions. - Advised to keep incision area dry after showering. - Recommended use of antiperspirant in incision area to reduce sweating. - Instructed to clean incision area daily with soap and water. - Cleared to resume sexual activity: ? Informed about possibility of minor stretching and spotting during first intercourse post-surgery - Cleared to resume exercise and return to work. - Follow up as needed.
== END 2025-05-01 14:20 | disposition home or self-care (01) ==
LOC: HODSOBC 13:47
PROVIDERS: Supervising Provider Obstetrics & Gynecology; Visit Provider Obstetrics & Gynecology
DX: Z48.816 Encounter for surgical aftercare following surgery on the genitourinary system (principal); G89.18 Other acute postprocedural pain; Z90.710 Acquired absence of both cervix and uterus
CPT/HCPCS: 99213; G0463

== ENCOUNTER → 2025-06-15 | Outpatient (CLI) | payer MEDICAID, SELFPAY ==
--- NOTE | 2025-06-15 11:30 | XR_ITS ---
Examination: Abdomen sonogram, complete Date and time of exam: June 15, 2025, 1052 hours INDICATIONS: Left epigastric pain months. Technique: Multiple real-time grayscale transabdominal sonographic images of the abdomen have been obtained. Findings: Normal gallbladder Common bile duct enlarged 7 mm although no definite stones Pancreatic head 1.8 cm Aorta not enlarged. Liver 16.5 cm fatty infiltration no focal liver lesions Normal hepatopetal portal venous flow Patent IVC Right kidney 14.1 cm renal cortex 1.7 cm Left kidney absent Spleen 10.3 cm IMPRESSION: Enlarged common bile duct, consider MRCP follow-up to exclude common bile duct stones and/or stricture
== END | disposition home or self-care (01) ==
PROVIDERS: PCP Nurse Practitioner Family; Referring Provider Nurse Practitioner Family; Visit Provider Nurse Practitioner Family
DX: K83.8 Other specified diseases of biliary tract (principal)
CPT/HCPCS: 76700

== ENCOUNTER 2025-06-21 01:36 | Emergency (ER) | payer MEDICAID, SELFPAY ==
[2025-06-21 01:37] VITALS: BMI 38.2
--- NOTE | 2025-06-21 01:50 | XR_ITS ---
Examination: Abdomen sonogram, Limited Date and time of exam: June 21, 2025, 0429 hours INDICATIONS: Abdominal pain C epigastric pain beginning several months ago Technique: Real-time sanders scale transabdominal sonographic images of the upper abdomen obtained. Findings: Normal gallbladder Common bile duct 0.7 cm no stones Pancreatic head 3.6 cm Liver 17.3 cm fatty infiltration Normal hepatopetal portal venous flow Patent IVC IMPRESSION: Normal gallbladder. Mildly enlarged common bile duct, clinical correlation advised, if biliary colic is a clinical consideration, suggest MRCP follow-up
[2025-06-21 01:51] LABS: Bacteria,Urine 1+; Bilirubin,Urine Negative (Negative); Blood,Urine Trace (Negative); Clarity,Urine Clear (Clear/Hazy); Collection Type, Urine Clean Catch; Color,Urine Lt-Yellow (Lt Yel-Yel); Glucose, Urine Negative (Negative); Ketones,Urine Negative (Negative); Leukocyte Esterase,Urine Positive (Negative); Nitrite,Urine Negative (Negative); PH,Urine 6.0 (5.0-7.0); Protein,Urine Negative (Neg - Trace); RBC,Urine 5 /hpf (0-3); Specific Gravity,Urine 1.023 (1.001-1.035); Squamous Epithelial Cell,Urine 6 /hpf (0-5); Urobilinogen,Urine Negative mg/dL (0.0-1.0); WBC,Urine 2 /hpf (0-5)
[2025-06-21 01:52] VITALS: BP 140/84; PULSE 67; RESP 18; TEMP 37; O2SAT 97
[2025-06-21 01:53] LABS: HCG Qualitative,Urine Negative
[2025-06-21 02:34] LABS: Basophils # (Auto) 0.0 Thou/mm3 (0.0-0.2); Basophils % (Auto) 0 % (0-2.5); Eosinophils # (Auto) 0.4 Thou/mm3 (0.0-0.5); Eosinophils % (Auto) 3 % (0-10); Hematocrit 35.3 % (36.0-46.0); Hemoglobin 11.2 g/dL (12.0-16.0); Immature Granulocytes Auto 0.05 Thou/mm3 (0.00-0.00); Lymphocytes # (Auto) 1.9 Thou/mm3 (1.0-4.8); Lymphocytes % (Auto) 15 % (10-50); Mean Corpuscular HGB Conc 31.7 g/dl (31.0-37.0); Mean Corpuscular Hemoglobin 24.5 pg (25.0-35.0); Mean Corpuscular Volume 77 fL (80-100); Monocytes # (Auto) 1.1 Thou/mm3 (0.0-0.8); Monocytes % (Auto) 9 % (0-12); Neutrophils # (Auto) 9.1 Thou/mm3 (1.8-7.7); Neutrophils % (Auto) 72 % (37-80); Nucleated Red Blood Cell # 0.00 Thou/mm3 (0.00-0.00); Nucleated Red Blood Cell % 0 /100 WBC (0); Platelet Count 381 Thou/mm3 (140-440); RDW Standard Deviation 45.3 fL (36.4-46.3); Red Blood Count 4.58 Miln/mm3 (4.00-5.20); White Blood Count 12.6 Thou/mm3 (3.6-11.0)
[2025-06-21 02:41] LABS: Alanine Aminotransferase 15 U/L (10-49); Albumin, Serum 4.4 gm/dL (3.5-5.0); Albumin/Globulin Ratio 1.7 (1.2-2.2); Alkaline Phosphatase 96 U/L (46-116); Anion Gap 8 (7-16); Aspartate Amino Transferase 19 U/L (0-34); BUN/Creatinine Ratio 18 Ratio (12-20); Bilirubin,Total 0.2 mg/dL (0.3-1.2); Blood Urea Nitrogen 16 mg/dL (9-23); Calcium 9.5 mg/dL (8.3-10.6); Calcium (Corrected) 9.5 mg/dL (8.5-10.1); Carbon Dioxide 27.4 mMol/L (20.0-31.0); Chloride 107 mMol/L (98-107); Creatinine (Component) 0.9 mg/dL (0.6-1.3); Estimated Creatinine Clearance 77.5 mL/min (>60); Globulin 2.6 gm/dL (2.3-3.5); Glucose 102 mg/dL (74-106); Lipase 36 U/L (12-53); Osmolality,Calculated 284 (275-295); Potassium 4.1 mMol/L (3.4-5.1); Sodium 142 mMol/L (136-145); Total Protein 7.0 gm/dL (5.7-8.2); eGFR > 60 See Note
[2025-06-21] MEDS: FAMOTIDINE 20 MG TABLET 40 MG PO (03:26)
[2025-06-21] MEDS: ONDANSETRON ODT 4 MG TABRAP PO (03:26)
[2025-06-21] MEDS: MG HYD/AL HYD/SIME (Maalox Reg) SUSP 30 ML UDC PO ×2 (03:27→07:37)
[2025-06-21] MEDS: LIDOCAINE VISCOUS 2% 15 ML UDC PO ×2 (03:27→07:37)
--- NOTE | 2025-06-21 03:58 | PD.EDRME ---
Rapid Medical Screening Exam RME Arrival date/time: 06/21/25 01:36 PDT This is a case of 45-year-old female who came in the emergency room due to bilateral upper abdominal pain for 2 days associated with nausea vomiting patient will have history of gastritis patient was here 06/15/2025 where ultrasound of the abdomen was performed and patient need MRCP worsening of the symptoms this patient decided to start consult here in the emergency room Chief Complaint: Abdominal Pain Time Seen by Provider: 06/21/25 01:49 PDT Vital signs: Vital Signs Temperature 98.6 F 06/21/25 01:52 PDT Pulse Rate 67 06/21/25 01:52 PDT Respiratory Rate 18 06/21/25 01:52 PDT Blood Pressure 140/84 H 06/21/25 01:52 PDT Pulse Oximetry (%) 97 06/21/25 01:52 PDT Oxygen Delivery Method Room Air 06/21/25 01:52 PDT Exam: Moderate tenderness bilateral upper abdomen no guarding no rebound no rigidity Clinical Impression: Abdominal pain
[2025-06-21 07:15] VITALS: BP 130/85; PULSE 69; RESP 19; TEMP 37.2; O2SAT 99
--- NOTE | 2025-06-21 07:22 | PD.EDABDPN ---
ED Abdominal Pain RME/HPI General Chief Complaint: Abdominal Pain Stated complaint: UPPER ABD PAIN AND NAUSEA Time seen by provider: 06/21/25 01:49 PDT Arrival date/time: 06/21/25 01:36 PDT RME / HPI RME / HPI narrative: 06/21/25 01:36 PDT This is a case of 45-year-old female who came in the emergency room due to bilateral upper abdominal pain for 2 days associated with nausea vomiting patient will have history of gastritis patient was here 06/15/2025 where ultrasound of the abdomen was performed and patient need MRCP worsening of the symptoms this patient decided to start consult here in the emergency room DR. GUEVARA MAIN ED EVALUATION: 45-year-old female with a history of gastritis presents to the Emergency Department accompanied by her for epigastric pain that radiated to her back and was described as severe earlier today. She reports associated nausea without vomiting and mild diarrhea. Denies black or bloody stools. She also notes mild dysuria. No vaginal discharge. Related Data Previous Rx's ?Medication ?Instructions ?Recorded sulfamethoxazole 800 1 tab PO BID #5 tabs 06/21/25 mg-trimethoprim 160 mg tablet (Bactrim DS) Allergies Allergy/AdvReac Type Severity Reaction Status Date / Time No Known Allergies Allergy Verified 06/21/25 01:40 PDT Review of Systems Review of Systems Systems Reviewed: All systems reviewed, normal except as documented Past Medical History Past Medical History GASTROINTESTINAL: Positive Gastrointestinal Disorders (gastritis) and Obesity REPRODUCTIVE: Positive Previous Pregnancies HEMATOLOGIC: Positive Blood Disorders and Anemia PSYCHO/SOCIAL: Positive Anxiety OTHER HISTORY: Positive Hospitalization Surgical History SURGICAL: Positive Nephrectomy (Donated left kidney), Tubal Ligation and Section (X2) Social History SMOKING STATUS: Never smoker SECOND HAND EXPOSURE: No ED Exam Narrative Physical exam: GENERAL APPEARANCE: alert and oriented x 4, well-developed, well-nourished, no acute distress VITALS: All vitals were reviewed and the pulse ox is 99% on room air, which is normal according to my interpretation. HEENT: Normocephalic, atraumatic; pupils equal, round, reactive to light; EOMI; mucous membranes pink, moist; oropharynx clear NECK: Supple LUNGS: CTABL; no wheezes, no rales, no rhonchi HEART: Regular rate, regular rhythm; normal S1, S2; no murmurs ABDOMEN: non distended; normal BS; soft, no tenderness, no guarding, no rebound; no masses, no organomegaly, no hernia BACK: no CVA tenderness EXTREMITIES: atraumatic; no edema NEUROLOGIC: awake; alert and oriented x4; cranial nerves II-XII grossly intact; no focal sensory or motor deficits PSYCHIATRIC: appropriate mood and affect SKIN: warm, dry, normal color; no rashes Course Quality Measures none Orders Category Date Time Status US gall bladder Stat Exams 06/21/25 01:50 Completed CBC Stat Lab 06/21/25 02:08 Completed Comprehensive Metabolic Panel Stat Lab 06/21/25 02:08 Completed HCG Qualitative,Urine Stat Lab 06/21/25 01:28 Completed Lipase Stat Lab 06/21/25 02:08 Completed Urinalysis Stat Lab 06/21/25 01:28 Completed Famotidine [Pepcid] Med 06/21/25 03:01 Discontinued 40 mg PO X1 ONE HYDROcodone*/APAP 5/325 [Mason 5/325] Med 06/21/25 03:01 Discontinued 1 tab PO X1 ONE Lidocaine 2% Viscous [Xylocaine 2% Viscous] Med 06/21/25 03:01 Discontinued 15 ml PO X1 ONE Lidocaine 2% Viscous [Xylocaine 2% Viscous] Med 06/21/25 07:23 Discontinued 15 ml PO X1 ONE Ondansetron Odt [Zofran Odt] Med 06/21/25 03:02 Discontinued 4 mg PO X1 ONE Trimethoprim/Sulfa 160/800 Ds [Bactrim Ds] Med 06/21/25 07:23 Discontinued 1 tab PO X1 ONE mg Hyd/Al Hyd/Donte Susp [Maalox Susp] Med 06/21/25 03:01 Discontinued 30 ml PO X1 ONE mg Hyd/Al Hyd/Donte Susp [Maalox Susp] Med 06/21/25 07:23 Discontinued 30 ml PO X1 ONE Vital Signs Vital signs: Vital Signs Temperature 98.6 F 06/21/25 01:52 PDT Pulse Rate 67 06/21/25 01:52 PDT Respiratory Rate 18 06/21/25 01:52 PDT Blood Pressure 140/84 H 06/21/25 01:52 PDT Pulse Oximetry (%) 97 06/21/25 01:52 PDT Oxygen Delivery Method Room Air 06/21/25 01:52 PDT Abdominal Pain MDM MDM Narrative MDM Narrative:: I, Yeimy Hernandez, am scribing for and in the presence of Dr. Geuvara. She states that the GI cocktail medication given in the ED has helped relieve the pain; she denied the Mason medication. Patient data External records reviewed:: [facility] previous records Clinical information provided by:: patient and spouse Social determinants that could affect healthcare access:: none Patient has the following chronic illnesses:: gastritis How is presenting disease/condition affected by chronic disease/condition?: caused by Evaluation data The following diagnostics were reviewed and interpreted by me:: lab results and radiology exam(s) Lab and/or radiology exams considered but not ordered:: none Interpretation Summary: -Ultrasound and lab work looks fine. -WBC little elevated Procedure(s): US gall bladder Accession Number(s): [id number] cc: Jessie Street-C; Spencer Basilio MD; Rosario Jimenez~ Examination: Abdomen sonogram, Limited Date and time of exam: June 21, 2025, 0429 hours INDICATIONS: Abdominal pain C epigastric pain beginning several months ago Technique: Real-time sanders scale transabdominal sonographic images of the upper abdomen obtained. Findings: Normal gallbladder Common bile duct 0.7 cm no stones Pancreatic head 3.6 cm Liver 17.3 cm fatty infiltration Normal hepatopetal portal venous flow Patent IVC IMPRESSION: Normal gallbladder. Mildly enlarged common bile duct, clinical correlation advised, if biliary colic is a clinical consideration, suggest MRCP follow-up Dictated By: Spencer Basilio MD Medications / Prescriptions Medications or Prescriptions considered but not ordered:: none Medication administrations:: Medication Administration History Discontinued Medications Hydrocodone Bitart/Acetaminophen (Hydrocodone/Apap 5/325 Tablet) 1 tab PO X1 ONE Stop: 06/21/25 03:02 Last Admin: 06/21/25 03:31 Dose: Not Given Documented By: MEERA Non-Admin Reason: Patient Refused Al Hydrox/Mg Hydrox/Simethicone (Mg Hyd/Al Hyd/Donte (Maalox Reg) Susp 30 Ml Udc) 30 ml PO X1 ONE Stop: 06/21/25 03:02 Last Admin: 06/21/25 03:27 Dose: 30 ml Documented By: MEERA Al Hydrox/Mg Hydrox/Simethicone (Mg Hyd/Al Hyd/Donte (Maalox Reg) Susp 30 Ml Udc) 30 ml PO X1 ONE Stop: 06/21/25 07:24 Last Admin: 06/21/25 07:37 Dose: 30 ml Documented By: LIDA Famotidine (Famotidine 20 Mg Tablet) 40 mg PO X1 ONE Stop: 06/21/25 03:02 Last Admin: 06/21/25 03:26 Dose: 40 mg Documented By: MEERA Lidocaine HCl (Lidocaine Viscous 2% 15 Ml Udc) 15 ml PO X1 ONE Stop: 06/21/25 03:02 Last Admin: 06/21/25 03:27 Dose: 15 ml Documented By: MEERA Lidocaine HCl (Lidocaine Viscous 2% 15 Ml Udc) 15 ml PO X1 ONE Stop: 06/21/25 07:24 Last Admin: 06/21/25 07:37 Dose: 15 ml Documented By: LIDA Ondansetron HCl (Ondansetron Odt 4 Mg Tabrap) 4 mg PO X1 ONE; Protocol Stop: 06/21/25 03:03 Last Admin: 06/21/25 03:26 Dose: 4 mg Documented By: MEERA Trimethoprim/Sulfamethoxazole (Trimethoprim/Sulfa 160/800 Ds Tablet) 1 tab PO X1 ONE Stop: 06/21/25 07:24 Last Admin: 06/21/25 07:37 Dose: 1 tab Documented By: LIDA see above Consultations Consultation(s) initiated? (list below): No Diagnosis Differential diagnosis abdominal pain: other (Gastritis, peptic ulcer disease, and pancreatitis.) Most likely diagnosis given after review of the tests above:: Gastritis UTI Admission Indicated Admission indicated?: not indicated Admission Request Was there a request for admission?: No Disposition Plan Disposition Plan: Discharge Discharge Attestation Discharge Attestation: The patient and all family members were given an opportunity to ask questions and understood the discharge instructions. Discharge instructions specifically effects, indications for sooner follow up or return to the emergency department, and the expected course of current diagnosis. Patient condition: Stable Discharge Plan Plan Patient Disposition: HOME (Self Care) Prescriptions/Referrals Prescriptions/Med Rec: New sulfamethoxazole-trimethoprim [Bactrim DS] 800-160 mg tablet 1 tab PO BID Qty: 5 0RF Referrals: Jessie Street FNP-C [Primary Care Provider] - In 1 week Problem List Clinical Impression: Gastritis, UTI (urinary tract infection) Patient/Caregiver Discharge Instructions Education Materials: ED Gastritis (Adult), ED CYSTITIS Female Adult Print Language: Colombian Stand Alone Forms: Francisca Award Info., Patient Portal Info Letter
[2025-06-21] MEDS: TRIMETHOPRIM/SULFA 160/800 DS TABLET 1 TAB PO (07:37)
== END 2025-06-21 07:53 | disposition home or self-care (01) ==
PROVIDERS: Nurse Practitioner Family; Emergency Provider Emergency Medicine; PCP Nurse Practitioner Family
DX: N30.90 Cystitis, unspecified without hematuria (principal); K29.70 Gastritis, unspecified, without bleeding
CPT/HCPCS: 36415; 76705; 80053; 81001; 81025; 83690; 85025; 87086; 99283; J3490; Q0162; A9270

== ENCOUNTER 2025-07-14 17:07 | Emergency (ER) | payer MEDICAID, SELFPAY ==
[2025-07-14 18:56] VITALS: BP 119/76; PULSE 73; RESP 18; TEMP 37.3; O2SAT 98; BMI 39.5
--- NOTE | 2025-07-14 19:34 | XR_ITS ---
Examination: Abdomen sonogram, Limited Date and time of exam: July 14, 2025, 1950 hours INDICATIONS: Right upper abdominal pain with nausea today. Technique: Real-time sanders scale transabdominal sonographic images of the upper abdomen obtained. Findings: Contracted gallbladder No gallstones Common bile duct 0.6 cm Pancreatic head 3.4 cm Liver 18.5 cm smooth contour fatty infiltration no focal liver lesions Normal hepatopetal portal venous flow Patent IVC IMPRESSION: Mildly enlarged common bile duct, clinical correlation advised If biliary colic is a clinical consideration consider MRCP follow-up Moderate hepatomegaly
--- NOTE | 2025-07-14 19:34 | PD.EDRME ---
Rapid Medical Screening Exam [facility] Arrival date/time: 07/14/25 17:07 45F with history of hysterectomy presents to ED with persistent epigastric pain that radiates to back since visit several weeks ago here. Patient CBD on US was mildly dilated. Patient also has some N/V. Chief Complaint: Abdominal Pain Vital signs: Vital Signs Temperature 99.1 F 07/14/25 18:56 Pulse Rate 73 07/14/25 18:56 Respiratory Rate 18 07/14/25 18:56 Blood Pressure 119/76 07/14/25 18:56 Pulse Oximetry (%) 98 07/14/25 18:56 Oxygen Delivery Method Room Air 07/14/25 18:56 Exam: Mild epigastric tenderness Clinical Impression: biliary disease vs pancreatitis vs gastritis vs ab pain
[2025-07-14 19:56] LABS: Basophils # (Auto) 0.1 Thou/mm3 (0.0-0.2); Basophils % (Auto) 1 % (0-2.5); Eosinophils # (Auto) 0.4 Thou/mm3 (0.0-0.5); Eosinophils % (Auto) 4 % (0-10); Hematocrit 36.6 % (36.0-46.0); Hemoglobin 11.8 g/dL (12.0-16.0); Immature Granulocytes Auto 0.06 Thou/mm3 (0.00-0.00); Lymphocytes # (Auto) 2.4 Thou/mm3 (1.0-4.8); Lymphocytes % (Auto) 23 % (10-50); Mean Corpuscular HGB Conc 32.2 g/dl (31.0-37.0); Mean Corpuscular Hemoglobin 25.1 pg (25.0-35.0); Mean Corpuscular Volume 78 fL (80-100); Monocytes # (Auto) 1.0 Thou/mm3 (0.0-0.8); Monocytes % (Auto) 10 % (0-12); Neutrophils # (Auto) 6.3 Thou/mm3 (1.8-7.7); Neutrophils % (Auto) 62 % (37-80); Nucleated Red Blood Cell # 0.00 Thou/mm3 (0.00-0.00); Nucleated Red Blood Cell % 0 /100 WBC (0); Platelet Count 389 Thou/mm3 (140-440); RDW Standard Deviation 49.6 fL (36.4-46.3); Red Blood Count 4.71 Miln/mm3 (4.00-5.20); White Blood Count 10.2 Thou/mm3 (3.6-11.0)
[2025-07-14 20:17] LABS: Alanine Aminotransferase 20 U/L (10-49); Albumin, Serum 4.6 gm/dL (3.5-5.0); Albumin/Globulin Ratio 1.5 (1.2-2.2); Alkaline Phosphatase 84 U/L (46-116); Anion Gap 11 (7-16); Aspartate Amino Transferase 21 U/L (0-34); BUN/Creatinine Ratio 15 Ratio (12-20); Bilirubin,Total 0.4 mg/dL (0.3-1.2); Blood Urea Nitrogen 16 mg/dL (9-23); Calcium 10.0 mg/dL (8.3-10.6); Calcium (Corrected) 10.0 mg/dL (8.5-10.1); Carbon Dioxide 26.5 mMol/L (20.0-31.0); Chloride 104 mMol/L (98-107); Creatinine (Component) 1.1 mg/dL (0.6-1.3); Estimated Creatinine Clearance 64.6 mL/min (>60); Globulin 3.0 gm/dL (2.3-3.5); Glucose 98 mg/dL (74-106); Lipase 44 U/L (12-53); Osmolality,Calculated 282 (275-295); Potassium 3.9 mMol/L (3.4-5.1); Sodium 141 mMol/L (136-145); Total Protein 7.6 gm/dL (5.7-8.2); eGFR > 60 See Note
[2025-07-14] MEDS: ONDANSETRON ODT 4 MG TABRAP PO (20:40)
[2025-07-15 00:35] VITALS: BP 100/68; PULSE 64; RESP 18; TEMP 37.2; O2SAT 99
--- NOTE | 2025-07-15 00:52 | PD.EDABDPN ---
ED Abdominal Pain RME/HPI General Chief Complaint: Abdominal Pain Stated complaint: UPPER ABD PAIN RAD TO BACK Arrival date/time: 07/14/25 17:07 RME / HPI RME / HPI narrative: 07/14/25 17:07 45F with history of hysterectomy presents to ED with persistent epigastric pain that radiates to back since visit several weeks ago here. Patient CBD on US was mildly dilated. Patient also has some N/V. Dr. Espinoza?s Main ED Evaluation: 45yo female presents to the ED for a chief complaint of epigastric pain that radiates to her back. Patient has been evaluated for her pain multiple times in the past and was diagnosed with gastritis. She is waiting to olive picker her omeprazole from the pharmacy. Patient reports associated N/V. Denies any fever, chills, or any other associated symptoms. NKA. Related Data Previous Rx's ?Medication ?Instructions ?Recorded sulfamethoxazole 800 1 tab PO BID #5 tabs 06/21/25 mg-trimethoprim 160 mg tablet (Bactrim DS) dicyclomine 20 mg tablet 20 mg PO QID PRN abdominal pain 07/15/25 #20 tabs Allergies Allergy/AdvReac Type Severity Reaction Status Date / Time No Known Allergies Allergy Verified 06/21/25 01:40 PDT Review of Systems Review of Systems Systems Reviewed: All systems reviewed, normal except as documented Past Medical History Past Medical History NEUROLOGIC: Negative Neurological Disorders or Seizures CARDIAC: Negative Cardiac Disorders or Congestive Heart Failure RESPIRATORY: Negative Chronic Obstructive Pulmonary Disease (COPD) GASTROINTESTINAL: Positive Gastrointestinal Disorders (gastritis) and Obesity; Negative Hepatitis GENITOURINARY: Negative Genitourinary Disorders or Renal Disease REPRODUCTIVE: Positive Previous Pregnancies MUSCULOSKELETAL: Negative Musculoskeletal Disorders ENDOCRINE: Negative Endocrine Disorders, Diabetes Mellitus Type 1 or Diabetes Mellitus Type 2 HEMATOLOGIC: Positive Blood Disorders and Anemia PSYCHO/SOCIAL: Positive Anxiety OTHER HISTORY: Positive Hospitalization; Negative Autoimmune Disease, Blood Transfusions, Blood Transfusion Reaction, Anesthesia Reactions or Cancer Family History FAMILY HISTORY: Positive Family Surgery; Negative Family Psychiatric Problems, Family Respiratory Disorders, Family Cardiac Disorders, Family Gastrointestinal Problems, Family Cancer or Family Anesthesia Reaction Surgical History SURGICAL: Positive Nephrectomy (Donated left kidney), Tubal Ligation and Section (X2) Social History SMOKING STATUS: Never smoker SECOND HAND EXPOSURE: No Course Quality Measures none Orders Category Date Time Status US gall bladder Stat Exams 07/14/25 19:34 Completed CBC Stat Lab 07/14/25 19:44 Completed CMP [Comprehensive Metabolic Panel] Stat Lab 07/14/25 19:44 Completed Lipase Stat Lab 07/14/25 19:44 Completed Ondansetron Odt [Zofran Odt] Med 07/14/25 19:34 Discontinued 4 mg PO X1 ONE Vital Signs Vital signs: Vital Signs Temperature 99.1 F 07/14/25 18:56 Pulse Rate 73 07/14/25 18:56 Respiratory Rate 18 07/14/25 18:56 Blood Pressure 119/76 07/14/25 18:56 Pulse Oximetry (%) 98 07/14/25 18:56 Oxygen Delivery Method Room Air 07/14/25 18:56 Abdominal Pain MDM MDM Narrative MDM Narrative:: Scribe Attestation: 07/15/25 - Neida Jin am scribing for and in the presence of Dr. Espinoza. LFTs were normal including a normal alkaline phosphatase. Patient has had 3 gallbladder ultrasound since May of this year including tonight which showed no gallstones no wall thickening no pericholecystic fluid and a common bile duct of approximately 6 mm in size. Patient will olive picker what she believes to be Prilosec today from the pharmacy. She is avoid high spicy greasy fatty foods. Bentyl as prescribed. She must take the Prilosec as prescribed. Follow-up with her doctor for GI referral for possible outpatient HIDA scan in order to detect abnormal function of the gallbladder. I interpreted all labs. Patient data External records reviewed:: [facility] previous records (Per chart review, patient was seen here on 06/21/25 for gastritis.) Clinical information provided by:: patient Social determinants that could affect healthcare access:: none Patient has the following chronic illnesses:: none How is presenting disease/condition affected by chronic disease/condition?: no chronic disease Evaluation data The following diagnostics were reviewed and interpreted by me:: lab results and radiology exam(s) Lab and/or radiology exams considered but not ordered:: none Interpretation Summary: [facility] Report Signed Patient: TANIA DYER. Record#: [id number] Birthdate: 1980 Age/Sex: 45 / F Location: [facility], [place] Attending Dr: Ordering Physician: Chance Cedillo PA-C Date of Service: 07/14/25 Procedure(s): US gall bladder Accession Number(s): [id number] cc: Jessie Street NP; Spencer Basilio MD; hCance Cedillo PA-C~ Examination: Abdomen sonogram, Limited Date and time of exam: July 14, 2025, 1950 hours INDICATIONS: Right upper abdominal pain with nausea today. Technique: Real-time sanders scale transabdominal sonographic images of the upper abdomen obtained. Findings: Contracted gallbladder No gallstones Common bile duct 0.6 cm Pancreatic head 3.4 cm Liver 18.5 cm smooth contour fatty infiltration no focal liver lesions Normal hepatopetal portal venous flow Patent IVC IMPRESSION: Mildly enlarged common bile duct, clinical correlation advised If biliary colic is a clinical consideration consider MRCP follow-up Moderate hepatomegaly Dictated By: Spencer Basilio MD Signed By: <Electronically signed by Spencer Basilio MD in OV> 07/14/25 2206 Medications / Prescriptions Medications or Prescriptions considered but not ordered:: none Medication administrations:: Medication Administration History Discontinued Medications Ondansetron HCl (Ondansetron Odt 4 Mg Tabrap) 4 mg PO X1 ONE; Protocol Stop: 07/14/25 19:35 Last Admin: 07/14/25 20:40 Dose: 4 mg Documented By: APRIL see above Consultations Consultation(s) initiated? (list below): No Diagnosis Differential diagnosis abdominal pain: other (See MDM) Most likely diagnosis given after review of the tests above:: see clinical impression below Admission Indicated Admission indicated?: not indicated Admission Request Was there a request for admission?: No Disposition Plan Disposition Plan: Discharge Discharge Attestation Discharge Attestation: The patient and all family members were given an opportunity to ask questions and understood the discharge instructions. Discharge instructions specifically effects, indications for sooner follow up or return to the emergency department, and the expected course of current diagnosis. Patient condition: Stable Discharge Plan Plan Patient Disposition: HOME (Self Care) Prescriptions/Referrals Prescriptions/Med Rec: New dicyclomine 20 mg tablet 20 mg PO QID PRN (Reason: abdominal pain) Qty: 20 0RF No Action sulfamethoxazole-trimethoprim [Bactrim DS] 800-160 mg tablet 1 tab PO BID Qty: 5 0RF Referrals: Street,Jessie, DESK MAKER [Primary Care Provider] - In 1 week Problem List Clinical Impression: Abdominal pain Patient/Caregiver Discharge Instructions Education Materials: Abdominal Pain Additional Instructions: Take all medications as prescribed. Avoid hot spicy greasy fatty foods. Follow-up with your doctor. Return to ER as needed or if condition worsens. Print Language: [place] Citizen Stand Alone Forms: Francisca Award Info., Patient Portal Info Letter
== END 2025-07-15 01:28 | disposition home or self-care (01) ==
PROVIDERS: Physician Assistant; Emergency Provider Emergency Medicine; PCP Nurse Practitioner Family
DX: R10.11 Right upper quadrant pain (principal)
CPT/HCPCS: 36415; 76705; 80053; 83690; 85025; 99283; Q0162